=== PATIENT | female | born 1995 | race African-American/Black ===

== ENCOUNTER 2017-11-13 19:58 | Emergency (ER) | payer MEDICAID ==
[~2017-11-13] VITALS: Ht 160 cm; Wt 44.0 kg
[2017-11-14] MEDS ORDERED: HYDROCODONE/ACETAMINOPHEN 5/325MG TABLET PO ONE (03:00)
[2017-11-14 03:08] VITALS: BP 91/52
[2017-11-14 03:18] LABS: CLARITY URINE CLEAR (CLEAR); COLOR URINE YELLOW (YELLOW); KETONES URINE TRACE (NEGATIVE); LEUKOCYTE ESTERASE URINE NEGATIVE (NEGATIVE); NITRITE URINE NEGATIVE (NEGATIVE); OCCULT BLOOD URINE NEGATIVE (NEGATIVE); PH URINE 5.5 (4.5-8.0); PROTEIN URINE 1+ (NEGATIVE); SPECIFIC GRAVITY URINE 1.035 (1.005-1.030)
[2017-11-14] MEDS ORDERED: FAMOTIDINE 20MG TABLET PO ONE (04:30)
== END 2017-11-14 06:18 | disposition home or self-care (01) ==
LOC: ER 19:58
DX: R07.89 Other chest pain (principal); M54.5 Low back pain; M25.562 Pain in left knee
CPT/HCPCS: 71045; 81001; 93005; 99285

== ENCOUNTER 2020-06-24 21:38 | Emergency (ER) | payer MEDICAID ==
[~2020-06-24] VITALS: Ht 160 cm; Wt 59.0 kg
[2020-06-24] MEDS ORDERED: HYDROCODONE/ACETAMINOPHEN 5/325MG TABLET PO STA (23:57)
[2020-06-25 00:37] LABS: BASOPHILS % 0.7 % (0.0-2.0); CHLORIDE 107 mEq/L (98-107); EOSINOPHILS % 3.6 % (0.0-5.0); HEMATOCRIT. 35.7 % (36.0-48.0); HEMOGLOBIN. 12.4 g/dL (12.0-16.0); LYMPHOCYTES % 40.5 % (20.0-50.0); MEAN CORPUSCULAR HEMOGLOBIN 30.6 pg (28.0-32.0); MEAN PLATELET VOLUME 8.1 fl (7.4-10.4); MONOCYTES % 5.3 % (2.0-8.0); NEUTROPHILS % 49.9 % (40.0-76.0); PLATELET 352 x1000/uL (130-400); RED BLOOD CELL COUNT 4.06 mill/uL (4.2-5.4); RED CELL DISTRIBUTION WIDTH 13.4 % (11.6-14.6)
[2020-06-25] MEDS ORDERED: KETOROLAC 60MG/2ML VIAL IM ONE (02:15)
[2020-06-25 02:55] VITALS: BP 102/65
== END 2020-06-25 02:57 | disposition home or self-care (01) ==
LOC: ER 21:38
DX: K50.90 Crohn's disease, unspecified, without complications (principal); F12.10 Cannabis abuse, uncomplicated; Z93.3 Colostomy status; Z90.49 Acquired absence of other specified parts of digestive tract; Z98.890 Other specified postprocedural states
CPT/HCPCS: 36415; 80053; 85025; 93005; 96372; 99284; J1885

== ENCOUNTER 2020-07-20 17:00 | Emergency (ER) | payer MEDICAID ==
[~2020-07-20] VITALS: Ht 160 cm; Wt 59.0 kg
[2020-07-20] MEDS ORDERED: IBUPROFEN 600MG TABLET PO ONE (17:30)
[2020-07-20] MEDS ORDERED: DEXAMETHASONE 4MG TABLET PO ONE (17:30)
[2020-07-20] MEDS ORDERED: PENICILLIN G BENZATHINE 1,200,000 UNITS/2ML SYR IM ONE (17:30)
[2020-07-20 18:00] VITALS: BP 130/79
== END 2020-07-20 18:07 | disposition home or self-care (01) ==
LOC: ER 17:00
DX: J02.0 Streptococcal pharyngitis (principal); F12.10 Cannabis abuse, uncomplicated; Z20.828 Contact with and (suspected) exposure to other viral communicable diseases; Z98.890 Other specified postprocedural states
CPT/HCPCS: 87070; 87635; 96372; 99283; C9803; J0561; J8540

== ENCOUNTER 2021-01-15 15:35 | Emergency (ER) | payer MEDICAID ==
[~2021-01-15] VITALS: Ht 160 cm; Wt 59.0 kg
[2021-01-15] MEDS ORDERED: KETOROLAC 30MG/ML VIAL IV STA (16:46)
[2021-01-15 17:16] LABS: BASOPHILS % 0.5 % (0.0-2.0); EOSINOPHILS % 1.9 % (0.0-5.0); HEMOGLOBIN. 12.6 g/dL (12.0-16.0); LYMPHOCYTES % 18.8 % (20.0-50.0); MEAN CORPUSCULAR HEMOGLOBIN 30.7 pg (28.0-32.0); MEAN CORPUSCULAR VOLUME 89.8 fL (81.0-99.0); MEAN PLATELET VOLUME 7.7 fl (7.4-10.4); MONOCYTES % 6.1 % (2.0-8.0); NEUTROPHILS % 72.7 % (40.0-76.0); PLATELET 291 x1000/uL (130-400); RED BLOOD CELL COUNT 4.11 mill/uL (4.2-5.4); RED CELL DISTRIBUTION WIDTH 12.7 % (11.6-14.6)
[2021-01-15 17:23] LABS: CHLORIDE 107 mEq/L (98-107)
[2021-01-15 17:34] LABS: HCG SCREEN NEGATIVE
[2021-01-15] MEDS ORDERED: IBUP-2028 MT (17:58)
[2021-01-15] MEDS ORDERED: POTASSIUM CHLORIDE 20MEQ TABLET SR PO ONE (18:00)
[2021-01-15 18:26] VITALS: BP 118/70
== END 2021-01-15 18:33 | disposition home or self-care (01) ==
LOC: ER 15:35
DX: R07.89 Other chest pain (principal); K50.90 Crohn's disease, unspecified, without complications; M06.9 Rheumatoid arthritis, unspecified; F12.10 Cannabis abuse, uncomplicated; Z93.3 Colostomy status; Z98.890 Other specified postprocedural states; Z90.49 Acquired absence of other specified parts of digestive tract
CPT/HCPCS: 36415; 71045; 80053; 84484; 84703; 85025; 93005; 96374; 99285; J1885

== ENCOUNTER 2021-04-26 22:49 | Emergency (ER) | payer MEDICAID ==
[~2021-04-26] VITALS: Ht 160 cm; Wt 53.0 kg
[~2021-04-26 22:49] MED LIST: IBUP-2028 MT
[2021-04-27 00:54] VITALS: BP 131/74
== END 2021-04-27 00:57 | disposition home or self-care (01) ==
LOC: ER 22:49
DX: Z43.2 Encounter for attention to ileostomy (principal); K50.90 Crohn's disease, unspecified, without complications; M19.90 Unspecified osteoarthritis, unspecified site; F12.10 Cannabis abuse, uncomplicated; Z98.890 Other specified postprocedural states
CPT/HCPCS: 99281